=== PATIENT | female | born 1980 | race Caucasian/White ===

== ENCOUNTER 2018-08-07 21:56 | Emergency (ER) | payer SELFPAY ==
[~2018-08-07] VITALS: Ht 177.8 cm; Wt 118.2 kg
[2018-08-07 22:44] VITALS: Ht 177.8 cm; Wt 118.2 kg
[2018-08-07 23:47] LABS: BASOPHILS 0.4 % (0-2); HEMOGLOBIN 13.6 g/dL (12-16); LYMPHOCYTES 43.3 % (15-50); MCH 27.9 pg (26.0-34.0); MCHC 33.2 g/dL (31.0-37.0); MCV 84.2 fL (80.0-100.0); MEAN PLATELET VOLUME 9.9 fL (7.4-10.4); MONOCYTES 9.7 % (2-11); NEUTROPHILS 42.6 % (40-80); PLATELET COUNT 348 10x3/uL (130-400); RBC 4.87 10x6/uL (4.00-5.40); RDW 14.5 % (11.5-14.5); WBC 4.8 10x3/uL (4.8-10.8)
[2018-08-07 23:56] LABS: CALC OSMOLALITY 277 mosm/kg (275-300); CALCIUM 8.7 mg/dL (8.5-10.1); CARBON DIOXIDE 25.4 mmol/L (21.0-32.0); CHLORIDE - SERUM 104 mmol/L (98-107); CREATININE - SERUM 0.8 mg/dL (0.6-1.3); GLUCOSE 80 mg/dL (74-106); LIPASE 103 U/L (73-393); POTASSIUM - SERUM 3.4 mmol/L (3.5-5.1); SODIUM 141 mmol/L (136-145); UREA NITROGEN 6 mg/dL (7-18); eGFR NON AFRICAN AMERICAN 86 mL/min (90-120)
[2018-08-08] MEDS ORDERED: PHENERGAN25 M1 PO (00:57)
[2018-08-08 01:47] VITALS: BP 140/89
== END 2018-08-08 01:20 | disposition home or self-care (01) ==
LOC: D.ER 21:56
PROVIDERS: Family Medicine
DX: K52.9 Noninfective gastroenteritis and colitis, unspecified (principal)